=== PATIENT | female | born 1990 | race African-American/Black ===

== ENCOUNTER 2016-08-09 01:53 | Emergency (ER) | payer MEDICAID ==
[2016-08-09 01:55] LABS: INFLUENZA A NEG (NEG); INFLUENZA B POS (NEG)
== END 2016-08-09 02:25 | disposition home or self-care (01) ==
LOC: CED 01:53
DX: J10.1 Influenza due to other identified influenza virus with other respiratory manifestations (principal); F17.210 Nicotine dependence, cigarettes, uncomplicated
CPT/HCPCS: 87804; 99282

== ENCOUNTER 2016-11-05 14:57 | Emergency (ER) | payer MEDICAID | END 2016-11-05 17:06 | disposition home or self-care (01) | LOC: CFTX 14:57 → CED 14:57 → CFTX 16:24 | DX: S61.205A Unspecified open wound of left ring finger without damage to nail, initial encounter (principal); X58.XXXA Exposure to other specified factors, initial encounter; Y92.009 Unspecified place in unspecified non-institutional (private) residence as the place of occurrence of the external cause | CPT/HCPCS: 99283 ==